=== PATIENT | female | born 2000 | race Caucasian/White ===

== ENCOUNTER 2020-01-25 16:16 | Emergency (ER) | payer BC, OTHER, SELFPAY ==
[2020-01-25 16:24] VITALS: BP 116/54; PULSE 69; RESP 17; TEMP 36.7; O2SAT 100; BMI 20.5
--- NOTE | 2020-01-25 16:25 | [facility].EDUROGF ---
ED Disposition Clinical Impression: Ureterolithiasis Disposition: Home, Self-Care Condition on Discharge: Good Instructions: DI for Kidney Stones Prescriptions: Hydrocodone/Acetaminophen [[place] 5-325 Tablet] 1 each PO Q4-6H PRN #9 tab PRN Reason: pain Prescription Printed Ketorolac Tromethamine [Toradol 10mg tablet] 10 mg PO Q6H PRN 4 Days #16 tab PRN Reason: pain Prescription Printed Ondansetron [Zofran 4mg ODT] 4 mg PO Q6 PRN #10 tab.rapdis PRN Reason: Nausea Prescription Printed Referrals: Chirag Wise MD [Staff Physician] - 7-14 days - Critical Care Critical Care Time: No Attestation: On , the high probability of a clinically significant, sudden or life threatening deterioration of the following system(s) required my full and direct attention, intervention and personal management. The time I documented below is in addition to time spent performing reported procedures but includes the following listed in this critical care notation. Medical Decision Making - Medical Records Medical records reviewed: Yes: I reviewed the patient's medical records. - Dylan Inquiry Pt receiving controlled substance: Yes Dylan was queried for this patient: No Risks and benefits of using a controlled substance: were discussed with pt by me Vital Signs: 01/25/20 16:24 Temperature 98.0 F Temperature Source Oral Pulse Rate [Right Radial] 69 Respiratory Rate 17 Blood Pressure [Right Arm] 116/54 L Blood Pressure Mean [Right Arm] 74 02 Sat by Pulse Oximetry 100 Oxygen Delivery Method Room Air - Lab Data Lab results reviewed: Yes: I reviewed the patient's lab results. Lab Results 01/25/20 16:23: Urine Color Yellow, Urine Appearance Cloudy, Urine pH 6.5, Ur Specific [place] >= 1.030, Urine Protein Negative, Urine Glucose (UA) Negative, Urine Ketones Trace, Urine Blood Trace-i, Urine Nitrate Negative, Urine Bilirubin Negative, Urine Urobilinogen 0.2, Ur Leukocyte Esterase Trace, Urine RBC 3-5, Urine WBC 5-10, Ur Squamous Epith Cells 20-50, Amorphous Sediment 2+, Urine Bacteria 2+ 01/25/20 16:23: Urine HCG, Qual Negative 01/25/20 16:45: WBC 13.9 H, RBC 3.90 L, Hgb 12.3, Hct 36.4 L, MCV 93.3, MCH 31.5 H, MCHC 33.8, RDW 13.0, Plt Count 251, MPV 8.5, Neut % (Auto) 90.7 H, Lymph % (Auto) 5.6 L, [place] % (Auto) 3.0, Eos % (Auto) 0.6, Baso % (Auto) 0.1, Neut # (Auto) 12.6 H, Lymph # (Auto) 0.8, [place] # (Auto) 0.4, Eos # (Auto) 0.1, Baso # (Auto) 0.0, Total Counted 100, Neutrophils % (Manual) 93 H, Lymphocytes % (Manual) 5 L, Monocytes % (Manual) 2, Platelet Estimate Normal, RBC Morphology Normal 01/25/20 16:45: Sodium 136, Potassium 4.5, Chloride 105, Carbon Dioxide 22, Anion Gap 13.5, BUN 11, Creatinine 1.00, Estimated Creat Clear 78, Estimated GFR 71, Est GFR ( Amer) 86, Glucose 113 H, Calcium 8.8 Result diagrams: 01/25/20 16:45 01/25/20 16:45 Orders (Tests/Meds): ED MEDICATIONS Generic Name Dose Route Start Last Admin Trade Name Freq PRN Reason Stop Dose Admin Sodium Chloride 1,000 mls @ 999 mls/hr 01/25/20 16:45 01/25/20 16:48 Sod Chlor 0.9% 1000ml Bag IV 01/25/20 17:45 999 mls/hr .[id number] JENN Administration Discontinued Medications Generic Name Dose Route Start Last Admin Trade Name Freq PRN Reason Stop Dose Admin Ketorolac Tromethamine 60 mg 01/25/20 16:32 01/25/20 16:40 Toradol 60mg/2ml Vial IM 01/25/20 16:33 60 mg ONCE ONE Administration Ondansetron HCl 4 mg 01/25/20 16:33 01/25/20 16:40 Zofran 4mg Odt SL 01/25/20 16:34 4 mg ONCE ONE Administration ORDERS Category Date Time Status Covid-19 Nasal PCR Sendout [facility] 01/25/20 16:55 Received Urine Culture Stat Micro 01/25/20 16:23 Received - CT Data CT Scan: Abdomen, Pelvis Time Received: 17:[address] Reviewed: Yes: I have reviewed the patient's CT results Findings Narrative: 1. Left nephrolithiasis with 3 mm stone at the left ureterovesical junction and mild left-sided obstructive ur
[2020-01-25 16:34] LABS: Microscopic, Urine URINE MICROSCOPIC (MICROSCOPIC)
[2020-01-25 16:36] LABS: Appearance,Urine CLOUDY (Clear); Bilirubin,Urine Negative (Negative); Blood, Urine TRACE-I (Negative); Color,Urine YELLOW (Yellow); Glucose,Urine (UA) Negative (Negative); Ketones,Urine TRACE (Negative); Leukocyte Esterase,Urine TRACE (Negative); Nitrate,Urine Negative (Negative); PH,Urine 6.5 (5.0-8.5); Protein,Urine Negative (Negative); Specific Gravity, Urine >= 1.030 (1.005-1.030); Urobilinogen,Urine 0.2 EU/dl (0.2)
[2020-01-25 16:37] LABS: Urine Pregnancy, HCG Qual. Negative (Negative)
--- NOTE | 2020-01-25 16:42 | CT_ITS ---
PROCEDURE: CT ABDOMEN PELVIS WO CON CLINICAL INDICATION: left flank pain Left-sided abdominal pain, left flank pain with nausea and vomiting COMPARISON: No exams were available for comparison TECHNIQUE: Axial images obtained with sagittal and coronal reformats. All CT scans at the facility use one or more dose reduction, viz: automated exposure control, ma/kV adjustment per patient size (including targeted exams where dose is matched to indication, i.e. head), or iterative reconstruction technique. FINDINGS: LOWER THORAX: No acute finding ABDOMEN & PELVIS: The liver, spleen, adrenal glands, pancreas, and right kidney have an unremarkable appearance. There are few punctate stones within the upper and lower pole of the left kidney with mild left hydronephrosis 3 mm stone at the left ureterovesical junction. No evidence of appendicitis. Multiple unopacified bowel loops in the abdomen or pelvis which could obscure or mimic pathology. If symptoms persist, consider repeat exam with IV and oral contrast.. Small amount fluid is present in the pelvis. There is a mild amount of retained colonic feces within the ascending colon and rectosigmoid region. No acute bony findings are evident. IMPRESSION: 1. Left nephrolithiasis with 3 mm stone at the left ureterovesical junction and mild left-sided obstructive uropathy. 2. Multiple unopacified bowel loops in the abdomen or pelvis which could obscure or mimic pathology. If symptoms persist or are not concordant to the findings above then, consider repeat exam with IV and oral contrast. Dictated by: Trav Moore MD 01/25/2020 17:28 Trav Moore MD in [facility] 01/25/2020 17:28
[2020-01-25 16:46] LABS: Amorphous Sediment,Urine 2+ /lpf; Bacteria,Urine 2+ /lpf; Squamous Epithelial Cell,Urine 20-50 #/hpf (0-5)
[2020-01-25 16:58] LABS: Basophils % 0.1 % (0.1-2.0); Chloride 105 mmol/L (98-107); Eosinophils # 0.1 K/mm3 (0.0-0.4); Eosinophils % 0.6 % (0.1-12.0); Hematocrit 36.4 % (37.0-47.0); Hemoglobin 12.3 g/dL (12.2-16.2); Lymphocytes # 0.8 K/mm3 (0.7-4.5); Lymphocytes % 5.6 % (10-50); Mean Corpuscular HGB Conc 33.8 g/dL (31.8-35.4); Mean Corpuscular Hemoglobin 31.5 pg (27.0-31.2); Mean Corpuscular Volume 93.3 fl (81-99); Mean Platelet Volume 8.5 fl (7.4-10.4); Monocytes # 0.4 K/mm3 (0.1-1.0); Neutrophils # 12.6 K/mm3 (1.8-7.8); Neutrophils % 90.7 % (37.0-80.0); Platelet Count 251 K/mm3 (142-424); Sodium 136 mmol/L (136-145); White Blood Count 13.9 K/mm3 (4.5-13.0)
[2020-01-25 16:59] LABS: Potassium 4.5 mmoL/L (3.5-5.1)
[2020-01-25 17:00] LABS: MANUAL DIFFERENTIAL MANUAL DIFFERENTIAL (MANUAL DIFF)
[2020-01-25 17:02] LABS: Anion Gap 13.5 mEq/L (5-15); Blood Urea Nitrogen 11 mg/dl (7-17); Calcium 8.8 mg/dl (8.4-10.2); Carbon Dioxide 22 mmol/L (22.0-30.0); Creatinine Clearance Estimated 78 mL/min (50-200); Estimated Glomerular Filt Rate 71 ml/min (>60); GFR (African American) 86 ML/MIN (>60); Glucose 113 mg/dl (74-100)
[2020-01-25 17:09] LABS: Lymphocytes % 5 % (10-50); Monocytes % 2 % (2-9); Neutrophils % 93 % (42-76); Total Cells Counted 100
[2020-01-25 17:10] LABS: Platelet Estimate Normal; RBC Morphology Normal
[2020-01-25 18:24] VITALS: BP 124/60; PULSE 71; RESP 16; TEMP 36.7; O2SAT 99
[2020-01-27 14:16] LABS: Covid-19 Nasal PCR Sendout Lex Not Detected
--- NOTE | 2020-01-27 15:45 | PC.NURSE ---
covid results reported to patient via phone at this time.
== END 2020-01-25 18:25 | disposition home or self-care (01) ==
PROVIDERS: Emergency Provider Emergency Medicine
DX: N20.1 Calculus of ureter (principal); Z03.818 Encounter for observation for suspected exposure to other biological agents ruled out
CPT/HCPCS: 74176; 80048; 81001; 81025; 85007; 85025; 87086; 96365; 96372; 99283; U0004

== ENCOUNTER → 2022-08-21 10:25 | Outpatient (CLI) | payer BC, SELFPAY ==
[2022-08-21 16:49] LABS: Alanine Aminotransferase 33 U/L (12-78); Albumin Level 4.4 g/dl (3.5-5.0); Albumin/Globulin Ratio 1.5 (1.1-1.8); Alkaline Phosphatase 59 U/L (38-126); Anion Gap 14.4 mEq/L (5-15); Aspartate Amino Transferase 28 U/L (14-36); Bilirubin,Total 0.6 mg/dl (0.2-1.3); Blood Urea Nitrogen 15 mg/dl (7-17); Calcium 8.7 mg/dl (8.4-10.2); Carbon Dioxide 23 mmol/L (22.0-30.0); Chloride 104 mmol/L (98-107); Chol/HDL Ratio 3.4 (1-3.5); Cholesterol 194 mg/dl (140-200); Estimated Glomerular Filt Rate 78 ml/min (>60); GFR (African American) 95 ML/MIN (>60); Glucose 78 mg/dl (74-100); HDL Cholesterol 57 mg/dl (40-60); Potassium 4.4 mmoL/L (3.5-5.1); Sodium 137 mmol/L (136-145); Total Protein,Serum 7.4 g/dl (6.3-8.2); Triglycerides 99 mg/dl (30-150); VLDL Cholesterol 20 mg/dL (0-40)
[2022-08-21 16:57] LABS: Basophils # 0.1 K/mm3 (0-0.2); Basophils % 0.7 % (0.1-2.0); Eosinophils # 0.3 K/mm3 (0.0-0.4); Eosinophils % 4.9 % (0.1-12.0); Hematocrit 38.9 % (37.0-47.0); Hemoglobin 12.7 g/dL (12.2-16.2); Lymphocytes % 32.5 % (10-50); Mean Corpuscular HGB Conc 32.7 g/dL (31.8-35.4); Mean Corpuscular Hemoglobin 30.7 pg (27.0-31.2); Mean Platelet Volume 9.8 fl (7.4-10.4); Monocytes # 0.4 K/mm3 (0.1-1.0); Monocytes % 6.2 % (1.7-9.3); Neutrophils # 3.4 K/mm3 (1.8-7.8); Neutrophils % 55.6 % (37.0-80.0); Platelet Count 296 K/mm3 (142-424); Red Blood Count 4.14 M/mm3 (4.20-5.40); Red Cell Distribution Width 13.1 % (11.5-17.5); White Blood Count 6.2 K/mm3 (4.8-10.8)
[2022-08-21 17:00] LABS: Direct LDL Cholesterol 119.83 mg/dL (100-129)
[2022-08-21 17:06] LABS: T4 (Thyroxine) 11.5 ug/dl (5.53-11.0)
[2022-08-21 17:20] LABS: Thyroid Stimulating Hormone 2.81 uIU/mL (0.465-4.68)
[2022-08-22 12:16] LABS: Free T4 (Free Thyroxine) 1.24 ng/dl (0.78-2.19)
== END ==
PROVIDERS: PCP Family Medicine; Visit Provider Family Medicine
DX: Z00.00 Encounter for general adult medical examination without abnormal findings (principal); R61 Generalized hyperhidrosis; R79.89 Other specified abnormal findings of blood chemistry
CPT/HCPCS: 80053; 80061; 84436; 84439; 84443; 85025